=== PATIENT | female | born 1960 | race Caucasian/White ===

== ENCOUNTER → 2017-01-22 | Outpatient (CLI) | payer OTHER | LOC: CIMAGING 15:58 | PROVIDERS: ATTEND Physician Assistant Medical | DX: M48.54XA Collapsed vertebra, not elsewhere classified, thoracic region, initial encounter for fracture (principal) | CPT/HCPCS: 72070-PO ==

== ENCOUNTER → 2017-01-30 | Outpatient (CLI) | payer OTHER | LOC: BRMIMAGING 08:33 | PROVIDERS: ATTEND Physician Assistant Medical | DX: Z13.820 Encounter for screening for osteoporosis (principal); M81.0 Age-related osteoporosis without current pathological fracture; Z78.0 Asymptomatic menopausal state ==

== ENCOUNTER → 2018-04-08 | Outpatient (CLI) | payer OTHER | LOC: BRMIMAGING 08:48 | PROVIDERS: ATTEND Family Medicine | DX: Z13.820 Encounter for screening for osteoporosis (principal); M81.0 Age-related osteoporosis without current pathological fracture ==